=== PATIENT | female | born 1975 | race African-American/Black ===

== ENCOUNTER 2016-06-21 08:47 | Emergency (ER) | payer MEDICAID ==
[~2016-06-21] VITALS: Ht 147.3 cm; Wt 93.0 kg
[~2016-06-21 08:47] MED LIST: FERR18TA
[2016-06-21 09:05] VITALS: BP 140/83
== END 2016-06-21 09:34 | disposition home or self-care (01) ==
LOC: ER 08:47
DX: L03.113 Cellulitis of right upper limb (principal); Z90.49 Acquired absence of other specified parts of digestive tract; Z98.51 Tubal ligation status; Z98.890 Other specified postprocedural states